=== PATIENT | male | born 1965 | race Two or more races ===

== ENCOUNTER 2023-10-17 04:05 | Inpatient (IN) | payer MEDICAID ==
[~2023-10-17] VITALS: Ht 172.7 cm; Wt 82.0 kg
[2023-10-17 04:30] VITALS: PULSE 106; O2SAT 97
[2023-10-17 05:59] LABS: Basophils # (auto) 0 10 ^3/uL (0-0.2); Basophils % (auto) 0.3 % (0.0-2.0); Chloride 105 mmol/L (98-107); Eosinophils # (auto) 0.1 10 ^3/uL (0-0.8); Hematocrit 52.3 % (41.0-53.0); Hemoglobin 17.8 g/dL (13.5-17.5); Lymphocytes # (auto) 1.7 10 ^3/uL (0.4-5.4); Lymphocytes % (auto) 12.9 % (10.0-50.0); Mean Corpuscular Hemoglobin 31.2 pg (28.0-32.0); Mean Corpuscular Volume 91.8 fL (80.0-100.0); Monocytes # (auto) 1.4 10 ^3/uL (0-1.3); Monocytes % (auto) 10.4 % (0.0-12.0); Neutrophils # (auto) 9.8 10 ^3/uL (1.6-8.6); Neutrophils % (auto) 75.4 % (37.0-80.0); Nucleated Red Blood Cells % 0.2 %; Platelet Count (auto) 289 10^3/uL (140-450); Potassium 3.6 mmol/L (3.5-5.1); Red Blood Cells 5.69 10^6/uL (4.5-5.90); Red Cell Distribution Width 15.1 % (11.8-14.3); Sodium 136 mmol/L (136-145)
[2023-10-17 06:00] LABS: Anion Gap 9 (5-15); Calcium 9.6 mg/dL (8.7-10.4); Carbon Dioxide 22 mmol/L (20-30)
[2023-10-17 06:05] LABS: BUN/Creatinine Ratio 12.4 (10.0-20.0); Blood Urea Nitrogen 11 mg/dL (9-23); Glucose 155 mg/dL (74-106)
[2023-10-17] MEDS: MORPHINE SULFATE 4 MG/ML SYR/VIAL IV ONE (06:27)
[2023-10-17] MEDS: ONDANSETRON HCL 4 MG/2 ML VIAL IV ONE (06:28)
[2023-10-17] MEDS: SODIUM CHLORIDE 0.9% 1,000 ML IV ONE ×2 (06:46→08:47)
[2023-10-17 07:30] VITALS: PULSE 98; RESP 17; O2SAT 96
[2023-10-17] MEDS: PIPERACILLIN-TAZOB 3.375GM 100 ML IV ONE (07:40)
[2023-10-17] MEDS: levoFLOXacin 500MG 100 ML IV ONE (07:52)
[2023-10-17 07:54] LABS: Urine Bacteria None Seen /hpf (None Seen)
[2023-10-17] MEDS: LORazepam 2MG/ML-1ML VIAL IV ONE (07:59)
[2023-10-17 08:03] LABS: Urine Blood Negative /uL (Negative); Urine Clarity Clear (Clear); Urine Color Yellow (Yellow); Urine Protein, UAD TRACE (Negative); Urine Specific Gravity 1.038 (1.001-1.035); Urine Urobilinogen Normal (Negative); Urine WBC <1 /hpf (0 - 3)
[2023-10-17] MEDS: CLINDAMYCIN 600MG IV 50 ML IV ONE (08:47)
[2023-10-17] MEDS ORDERED: ONDANSETRON HCL 4 MG/2 ML VIAL IV PRN (10:45)
[2023-10-17] MEDS ORDERED: DOCUSATE SOD 100 MG CAP PO PRN (10:45)
[2023-10-17] MEDS ORDERED: MORPHINE SULFATE INJ 2 MG/ml SYRG IV PRN ×2 (10:45→19:00)
[2023-10-17] MEDS ORDERED: NITROGLYCERIN 0.4 MG SL TAB SL PRN (11:00)
[2023-10-17] MEDS: SODIUM CHLORIDE 0.9% 1,000 ML IV SCH ×2 (11:01→19:00)
[2023-10-17] MEDS: ENOXAPARIN SOD 40 MG/0.4 ML SYRINGE SC SCH (11:15)
[2023-10-17 11:33] LABS: INR 1.06 (0.9-1.15); Prothrombin Time 11.2 sec (9.3-11.8)
[2023-10-17] MEDS: NIFEdipine ER 30 MG TAB PO ONE (11:46)
[2023-10-17] MEDS: LISINOPRIL 20 MG TAB PO ONE (11:47)
[2023-10-17 12:06] VITALS: BP 167/104; PULSE 93; RESP 18; RESP 20; TEMP 97.8; O2SAT 97
[2023-10-17 13:05] VITALS: BP 167/104; PULSE 93; RESP 20; TEMP 98.2; O2SAT 97
[2023-10-17] MEDS: CLINDAMYCIN 600MG IV 50 ML IV SCH (15:18)
[2023-10-17 17:00] VITALS: BP 149/97; PULSE 98; RESP 18; TEMP 98.3; O2SAT 98
[2023-10-17] MEDS ORDERED: DEXTROSE (50%) 50ML SYRG IV PRN (19:15)
[2023-10-17] MEDS: HYDROcodone-ACET 5/325MG TAB PO PRN (20:06)
[2023-10-17 21:00] VITALS: BP 157/85; PULSE 93; RESP 18; TEMP 97.6; O2SAT 96
[2023-10-17] MEDS: LISINOPRIL 20 MG TAB PO SCH (21:30)
[2023-10-17] MEDS: GABAPENTIN 100 MG CAP PO SCH (21:30)
[2023-10-17] MEDS: ACCU-CHEK COMFORT CURVE STRIP VI SCH (21:33)
[2023-10-17] MEDS: InsuLIN REG 1unit/0.01ml Soln (100units/ml) SC SCH (21:33)
[2023-10-18] VITALS (9 sets, daily range): BP systolic 143–182; BP diastolic 83–101; PULSE 81–102; RESP 14–20; TEMP 97.6–98.7; O2SAT 95–98
[2023-10-18 05:58] LABS: Alanine Aminotransferase 14 U/L (7-40); Alkaline Phosphatase 105 U/L (46-116); Anion Gap 7 (5-15); BUN/Creatinine Ratio 16.2 (10.0-20.0); Blood Urea Nitrogen 12 mg/dL (9-23); Calcium 9.2 mg/dL (8.7-10.4); Carbon Dioxide 25 mmol/L (20-30); Chloride 105 mmol/L (98-107); Glucose 129 mg/dL (74-106); Potassium 3.9 mmol/L (3.5-5.1); Sodium 137 mmol/L (136-145)
[2023-10-18 05:59] LABS: Aspartate Aminotransferase 12 U/L (13-40); Bilirubin, Total 1.3 mg/dL (0.2-1.0); Total Protein 7.2 g/dL (5.7-8.2)
[2023-10-18 07:18] LABS: Basophils # (auto) 0 10 ^3/uL (0-0.2); Basophils % (auto) 0.4 % (0.0-2.0); Eosinophils # (auto) 0.2 10 ^3/uL (0-0.8); Hematocrit 44.9 % (41.0-53.0); Hemoglobin 15.6 g/dL (13.5-17.5); Lymphocytes # (auto) 1.8 10 ^3/uL (0.4-5.4); Lymphocytes % (auto) 15.4 % (10.0-50.0); Mean Corpuscular Hemoglobin 31.1 pg (28.0-32.0); Mean Corpuscular Hgb Conc. 34.7 g/dL (32.0-36.0); Mean Corpuscular Volume 89.7 fL (80.0-100.0); Monocytes # (auto) 1.6 10 ^3/uL (0-1.3); Monocytes % (auto) 13.3 % (0.0-12.0); Neutrophils # (auto) 8.2 10 ^3/uL (1.6-8.6); Neutrophils % (auto) 68.9 % (37.0-80.0); Platelet Count (auto) 254 10^3/uL (140-450); Red Blood Cells 5.01 10^6/uL (4.5-5.90); Red Cell Distribution Width 14.7 % (11.8-14.3); White Blood Cell 11.8 10^3/uL (4.4-10.8)
[2023-10-18] MEDS: NIFEdipine ER 30 MG TAB PO SCH (10:12)
[2023-10-18] MEDS ORDERED: VANCOMYCIN PER PHARMACY 0 MG IV SCH (14:30)
[2023-10-18] MEDS: VANCOMYCIN 1GM/200ML 200 ML IV ONE (15:18)
[2023-10-18] MEDS: CEFEPIME 1GM/ 50ML 50 ML IV ONE (17:09)
[2023-10-18] MEDS: CEFEPIME 1GM/ 50ML 50 ML IV SCH (21:19)
[2023-10-19] VITALS (7 sets, daily range): BP systolic 143–161; BP diastolic 81–99; PULSE 89–99; RESP 14–22; TEMP 97.9–98.3; O2SAT 96–99
[2023-10-19] MEDS: VANCOMYCIN 1GM/200ML 200 ML IV SCH (02:56)
[2023-10-19 06:16] LABS: Basophils # (auto) 0 10 ^3/uL (0-0.2); Basophils % (auto) 0.4 % (0.0-2.0); Eosinophils # (auto) 0.2 10 ^3/uL (0-0.8); Eosinophils % (auto) 1.5 % (0.0-7.0); Hemoglobin 16.4 g/dL (13.5-17.5); Lymphocytes % (auto) 18.3 % (10.0-50.0); Mean Corpuscular Hemoglobin 31.5 pg (28.0-32.0); Mean Corpuscular Volume 90.1 fL (80.0-100.0); Monocytes # (auto) 1.2 10 ^3/uL (0-1.3); Neutrophils # (auto) 7.3 10 ^3/uL (1.6-8.6); Neutrophils % (auto) 68.8 % (37.0-80.0); Nucleated Red Blood Cells % 0.1 %; Platelet Count (auto) 292 10^3/uL (140-450); Red Blood Cells 5.21 10^6/uL (4.5-5.90); Red Cell Distribution Width 14.9 % (11.8-14.3); White Blood Cell 10.7 10^3/uL (4.4-10.8)
[2023-10-19 06:31] LABS: Alanine Aminotransferase 18 U/L (7-40); Albumin 4.4 g/dL (3.2-4.8); Alkaline Phosphatase 121 U/L (46-116); Anion Gap 8 (5-15); Aspartate Aminotransferase 16 U/L (13-40); BUN/Creatinine Ratio 13.4 (10.0-20.0); Bilirubin, Total 0.9 mg/dL (0.2-1.0); Blood Urea Nitrogen 13 mg/dL (9-23); Calcium 9.4 mg/dL (8.7-10.4); Carbon Dioxide 25 mmol/L (20-30); Chloride 104 mmol/L (98-107); Glucose 169 mg/dL (74-106); Potassium 3.8 mmol/L (3.5-5.1); Sodium 137 mmol/L (136-145)
[2023-10-19] MEDS: LIDOCAINE 2%HCL (LOCAL ANESTH.) INJ 10ml MDV IJ ONE (07:52)
[2023-10-19] MEDS: MEROPENEM 1GM IVPB 50 ML IV ONE (17:38)
[2023-10-19] MEDS: MEROPENEM 1GM IVPB 50 ML IV SCH (23:11)
[2023-10-20] VITALS (10 sets, daily range): BP systolic 134–168; BP diastolic 84–101; PULSE 84–103; RESP 10–20; TEMP 97.4–98; O2SAT 95–98
[2023-10-20 02:36] LABS: Chloride 106 mmol/L (98-107); Potassium 4.1 mmol/L (3.5-5.1); Sodium 137 mmol/L (136-145)
[2023-10-20 02:37] LABS: Anion Gap 2 (5-15); Calcium 9.3 mg/dL (8.7-10.4); Carbon Dioxide 29 mmol/L (20-30)
[2023-10-20 02:42] LABS: BUN/Creatinine Ratio 15.5 (10.0-20.0); Blood Urea Nitrogen 13 mg/dL (9-23); Glucose 136 mg/dL (74-106)
[2023-10-20 06:51] LABS: Basophils # (auto) 0.1 10 ^3/uL (0-0.2); Basophils % (auto) 0.6 % (0.0-2.0); Eosinophils # (auto) 0.2 10 ^3/uL (0-0.8); Eosinophils % (auto) 1.8 % (0.0-7.0); Hematocrit 45.4 % (41.0-53.0); Hemoglobin 16.1 g/dL (13.5-17.5); Lymphocytes # (auto) 2.1 10 ^3/uL (0.4-5.4); Mean Corpuscular Hemoglobin 31.5 pg (28.0-32.0); Mean Corpuscular Hgb Conc. 35.6 g/dL (32.0-36.0); Mean Corpuscular Volume 88.5 fL (80.0-100.0); Monocytes # (auto) 1.2 10 ^3/uL (0-1.3); Monocytes % (auto) 12.3 % (0.0-12.0); Neutrophils # (auto) 6.2 10 ^3/uL (1.6-8.6); Neutrophils % (auto) 63.3 % (37.0-80.0); Nucleated Red Blood Cells % 0.1 %; Platelet Count (auto) 271 10^3/uL (140-450); Red Blood Cells 5.12 10^6/uL (4.5-5.90); Red Cell Distribution Width 14.6 % (11.8-14.3); White Blood Cell 9.7 10^3/uL (4.4-10.8)
[2023-10-20 07:22] LABS: Alanine Aminotransferase 22 U/L (7-40); Albumin 3.9 g/dL (3.2-4.8); Alkaline Phosphatase 103 U/L (46-116); Anion Gap 4 (5-15); Aspartate Aminotransferase 20 U/L (13-40); BUN/Creatinine Ratio 13.3 (10.0-20.0); Blood Urea Nitrogen 11 mg/dL (9-23); Calcium 9.3 mg/dL (8.7-10.4); Carbon Dioxide 28 mmol/L (20-30); Chloride 105 mmol/L (98-107); Glucose 146 mg/dL (74-106); Potassium 3.7 mmol/L (3.5-5.1); Sodium 137 mmol/L (136-145)
[2023-10-20 07:23] LABS: Bilirubin, Total 1.2 mg/dL (0.2-1.0); Total Protein 7.3 g/dL (5.7-8.2)
[2023-10-20] MEDS: LIDOCAINE W/ EPINEPHRINE 1% 20ML VIAL ONE (13:48)
[2023-10-20] MEDS ORDERED: VANCOMYCIN 1GM/200ML 200 ML IV SCH (14:00)
[2023-10-20] MEDS ORDERED: fentaNYL CITRATE 100 MCG/2 ML VL ONE (14:03)
[2023-10-20] MEDS ORDERED: MIDAZOLAM HCL 2MG/2ML 2ml VIAL (1mg/ml) ONE (14:04)
[2023-10-20] MEDS ORDERED: ceFAZolin 1GM VL ONE (14:30)
[2023-10-20] MEDS: CLINDAMYCIN 600MG IV 50 ML IV ONE (14:31)
[2023-10-20] MEDS ORDERED: PROPOFOL 10 MG/ML 20 ML IV ONE ×2 (14:47→15:06)
[2023-10-20] MEDS ORDERED: ONDANSETRON HCL 4 MG/2 ML VIAL ONE (15:03)
[2023-10-20] MEDS ORDERED: ESMOLOL HCL 10 ML IV ONE (15:05)
[2023-10-20] MEDS ORDERED: METOPROLOL TARTRATE 1MG/1ML-5ML VIAL IV ONE (15:06)
[2023-10-20] MEDS: ONDANSETRON HCL 4 MG/2 ML VIAL IV ONE (15:46)
[2023-10-21] VITALS (8 sets, daily range): BP systolic 130–185; BP diastolic 77–112; PULSE 77–96; RESP 17–22; TEMP 97.8–98.1; O2SAT 96–100
[2023-10-21 08:06] LABS: Basophils # (auto) 0 10 ^3/uL (0-0.2); Basophils % (auto) 0.4 % (0.0-2.0); Eosinophils # (auto) 0.2 10 ^3/uL (0-0.8); Eosinophils % (auto) 2.1 % (0.0-7.0); Hematocrit 49.8 % (41.0-53.0); Hemoglobin 17.5 g/dL (13.5-17.5); Lymphocytes # (auto) 2.1 10 ^3/uL (0.4-5.4); Lymphocytes % (auto) 20.9 % (10.0-50.0); Mean Corpuscular Hemoglobin 31.6 pg (28.0-32.0); Mean Corpuscular Hgb Conc. 35.2 g/dL (32.0-36.0); Mean Corpuscular Volume 89.8 fL (80.0-100.0); Monocytes % (auto) 10.6 % (0.0-12.0); Neutrophils # (auto) 6.5 10 ^3/uL (1.6-8.6); Nucleated Red Blood Cells % 0.2 %; Platelet Count (auto) 295 10^3/uL (140-450); Red Blood Cells 5.54 10^6/uL (4.5-5.90); Red Cell Distribution Width 14.7 % (11.8-14.3); White Blood Cell 9.9 10^3/uL (4.4-10.8)
[2023-10-21 08:12] LABS: Alanine Aminotransferase 27 U/L (7-40); Albumin 4.4 g/dL (3.2-4.8); Alkaline Phosphatase 121 U/L (46-116); Anion Gap 3 (5-15); Aspartate Aminotransferase 26 U/L (13-40); BUN/Creatinine Ratio 10.8 (10.0-20.0); Bilirubin, Total 1.5 mg/dL (0.2-1.0); Blood Urea Nitrogen 8 mg/dL (9-23); Calcium 9.9 mg/dL (8.7-10.4); Carbon Dioxide 31 mmol/L (20-30); Chloride 103 mmol/L (98-107); Glucose 127 mg/dL (74-106); Potassium 4.4 mmol/L (3.5-5.1); Sodium 137 mmol/L (136-145); Total Protein 8.2 g/dL (5.7-8.2)
[2023-10-21] MEDS: ERTAPENEM SOD INJ 1 GM in SODIUM CHL 0.9% 50 ML IV SCH (09:58)
[2023-10-21] MEDS ORDERED: LISI40TA16 PO (12:21)
[2023-10-21] MEDS ORDERED: NIFE1TAB31 PO (12:21)
[2023-10-21] MEDS: hydrALAZINE HCL 20 MG/ML VL IV PRN (16:44)
[2023-10-21 17:04] LABS: INR 1.06 (0.9-1.15); Partial Thromboplastin Time 29.5 SEC (24.5-34.5); Prothrombin Time 11.2 sec (9.3-11.8)
[2023-10-21] MEDS: cloNIDine HCL 0.1 MG TAB PO ONE (18:30)
[2023-10-22] VITALS (7 sets, daily range): BP systolic 133–164; BP diastolic 88–107; PULSE 69–96; RESP 14–20; TEMP 36.5–36.7; O2SAT 96–99
[2023-10-22 06:18] LABS: Alanine Aminotransferase 23 U/L (7-40); Albumin 4.1 g/dL (3.2-4.8); Alkaline Phosphatase 101 U/L (46-116); Anion Gap 6 (5-15); Aspartate Aminotransferase 20 U/L (13-40); BUN/Creatinine Ratio 16.7 (10.0-20.0); Blood Urea Nitrogen 12 mg/dL (9-23); Calcium 9.4 mg/dL (8.7-10.4); Carbon Dioxide 27 mmol/L (20-30); Chloride 103 mmol/L (98-107); Glucose 134 mg/dL (74-106); Potassium 3.7 mmol/L (3.5-5.1); Sodium 136 mmol/L (136-145)
[2023-10-22 06:19] LABS: Total Protein 7.5 g/dL (5.7-8.2)
[2023-10-22 06:20] LABS: Basophils # (auto) 0 10 ^3/uL (0-0.2); Basophils % (auto) 0.5 % (0.0-2.0); Eosinophils # (auto) 0.2 10 ^3/uL (0-0.8); Eosinophils % (auto) 2.4 % (0.0-7.0); Hematocrit 44.3 % (41.0-53.0); Hemoglobin 15.6 g/dL (13.5-17.5); Lymphocytes # (auto) 2.1 10 ^3/uL (0.4-5.4); Lymphocytes % (auto) 23.5 % (10.0-50.0); Mean Corpuscular Hemoglobin 31.5 pg (28.0-32.0); Mean Corpuscular Hgb Conc. 35.3 g/dL (32.0-36.0); Mean Corpuscular Volume 89.3 fL (80.0-100.0); Monocytes # (auto) 1.1 10 ^3/uL (0-1.3); Monocytes % (auto) 12.4 % (0.0-12.0); Neutrophils # (auto) 5.4 10 ^3/uL (1.6-8.6); Neutrophils % (auto) 61.2 % (37.0-80.0); Nucleated Red Blood Cells % 0.1 %; Platelet Count (auto) 287 10^3/uL (140-450); Red Blood Cells 4.96 10^6/uL (4.5-5.90); Red Cell Distribution Width 14.9 % (11.8-14.3); White Blood Cell 8.8 10^3/uL (4.4-10.8)
[2023-10-22] MEDS ORDERED: NIFEdipine ER 30 MG TAB PO SCH (10:15)
[2023-10-23] MEDS ORDERED: NIFEdipine ER 30 MG TAB PO SCH (10:00)
== END 2023-10-22 18:10 | disposition home health service (06) | DRG 720 ==
LOC: ER 04:05 → OVERFLOW 11:01 → EAST 12:21
PROVIDERS: ADMIT Internal Medicine; ATTEND Internal Medicine
PROC: 0W9L0ZZ Drainage of Lower Back, Open Approach (ICD-10-PCS; principal; 2023-10-20 13:57)
PROC: 05H933Z Insertion of Infusion Device into Right Brachial Vein, Percutaneous Approach (ICD-10-PCS; 2023-10-21)
PROC: B54MZZA Ultrasonography of Right Upper Extremity Veins, Guidance (ICD-10-PCS; 2023-10-21)
DX: A41.9 Sepsis, unspecified organism (principal); E11.40 Type 2 diabetes mellitus with diabetic neuropathy, unspecified; L02.212 Cutaneous abscess of back [any part, except buttock and flank]; L03.312 Cellulitis of back [any part except buttock and flank]; I10 Essential (primary) hypertension; M51.26 Other intervertebral disc displacement, lumbar region; M51.36 Other intervertebral disc degeneration, lumbar region; M47.816 Spondylosis without myelopathy or radiculopathy, lumbar region; M48.061 Spinal stenosis, lumbar region without neurogenic claudication; Z88.0 Allergy status to penicillin; Z79.4 Long term (current) use of insulin; Z79.899 Other long term (current) drug therapy; E11.65 Type 2 diabetes mellitus with hyperglycemia
CPT/HCPCS: 36415; 71045; 72131; 72148; 76705; 80048; 80053; 80202; 81001; 82962; 83036; 83605; 83880; 84484; 85025; 85610; 85730; 86850; 86900; 86901; 87070; 87075; 87077; 87186; 87205; 96361; 96365; 96375; 99291; A4565; G0378; J0690; J1335; J1815; J1956; J2001; J2185; J2250; J2405; J2543; J2704; J3490